=== PATIENT | male | born 2000 | race Caucasian/White ===

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

== ENCOUNTER 2020-02-24 16:35 | Emergency (ER) | payer OTHER ==
[~2020-02-24] VITALS: Ht 188 cm; Wt 68.0 kg
[~2020-02-24 16:35] MED LIST changes: +BACTRIM DS TAB1 EACH PO
[2020-02-24 17:37] LABS: URINE BILIRUBIN NEGATIVE (Negative); URINE BLOOD NEGATIVE (Negative); URINE CLARITY CLOUDY; URINE COLOR YELLOW; URINE GLUCOSE-RANDOM NEGATIVE (Negative); URINE KETONES NEGATIVE (Negative); URINE LEUKOCYTES-REFLEX NEGATIVE (Negative); URINE NITRITE-REFLEX NEGATIVE (Negative); URINE PROTEIN NEGATIVE (Negative); URINE SPECIFIC GRAVITY 1.025 (1.005-1.030)
[2020-02-24 17:55] LABS: SQUAMOUS NONE SEEN /LPF (0-3)
[2020-02-24 17:56] LABS: AMORPHOUS PHOSPHATES Many /LPF (None Seen); BACTERIA-REFLEX None Seen /HPF (None Seen); CASTS None Seen /LPF (None Seen); MUCUS 0-3 Light strn/LPF (None Seen); URINE RBC None Seen /HPF (0-2); URINE WBC-REFLEX None Seen /HPF (0-5)
[2020-02-24] MEDS ORDERED: AZITHROMYCIN250 MG PO (18:55)
[2020-02-24] MEDS ORDERED: SUPRAX400 M1 PO (18:55)
[2020-02-24 19:10] VITALS: BP 122/68
== END 2020-02-24 19:10 | disposition home or self-care (01) ==
LOC: M.ERS 16:35
PROVIDERS: Physician Assistant
DX: A64 Unspecified sexually transmitted disease (principal); F17.210 Nicotine dependence, cigarettes, uncomplicated

== ENCOUNTER 2021-01-02 19:38 | Emergency (ER) | payer OTHER ==
[~2021-01-02] VITALS: Ht 193 cm; Wt 68.0 kg
[~2021-01-02 19:38] MED LIST changes: +AZITHROMYCIN250 MG PO; +SUPRAX400 M1 PO
[2021-01-02 21:45] VITALS: BP 122/62
== END 2021-01-02 21:45 | disposition home or self-care (01) ==
LOC: M.ERS 19:38
DX: S05.01XA Injury of conjunctiva and corneal abrasion without foreign body, right eye, initial encounter (principal); Z79.899 Other long term (current) drug therapy; W22.8XXA Striking against or struck by other objects, initial encounter; Y93.89 Activity, other specified; Y92.89 Other specified places as the place of occurrence of the external cause; Y99.9 Unspecified external cause status